=== PATIENT | male | born 1965 | race Caucasian/White ===

== ENCOUNTER 2017-07-27 07:34 | Emergency (ER) | payer OTHER ==
[~2017-07-27] VITALS: Ht 203.2 cm; Wt 118.6 kg
[2017-07-27] MEDS ORDERED: LOSA100T6 PO (08:23)
[2017-07-27] MEDS ORDERED: OMEP-110 PO (08:23)
[2017-07-27] MEDS ORDERED: MAALOX/HYOSCYAMINE/LIDOCAINE 45 ML BTL PO ONE (09:00)
[2017-07-27] MEDS ORDERED: MAALOX/HYOSCYAMINE/LIDOCAINE 45 ML BTL ONE (09:21)
[2017-07-27 10:04] LABS: BASOPHILS # (AUTO) 0.07 x10^3/uL (0-0.1); BASOPHILS % (AUTO) 1 % (0-1); EOSINOPHILS # (AUTO) 0.13 x10^3/uL (0-0.4); EOSINOPHILS % (AUTO) 1 % (1-7); LYMPHOCYTES # (AUTO) 2.61 x10^3/uL (1-3.4); LYMPHOCYTES % (AUTO) 26 % (22-44); MD NO; MEAN CORPUSCULAR HEMOGLOBIN 32.8 pg (27.5-34.5); MEAN CORPUSCULAR HGB CONC 34.9 g/dL (33.2-36.2); MEAN CORPUSCULAR VOLUME 93.9 fL (81-97); MEAN PLATELET VOLUME 9.3 fL (7.4-10.4); MONOCYTES # (AUTO) 0.75 x10^3/uL (0.2-0.8); MONOCYTES % (AUTO) 7 % (2-9); NEUTROPHILS # (AUTO) 6.59 x10^3/uL (1.8-6.8); NEUTROPHILS % (AUTO) 65 % (42-75); PLATELET COUNT 175 x10^3/uL (130-400); RED BLOOD COUNT 4.72 x10^6/uL (4.38-5.82); RED CELL DISTRIBUTION WIDTH 12.4 % (9.4-14.8)
[2017-07-27 10:06] LABS: ALANINE AMINOTRANSFERASE 39 U/L (12-78); ANION GAP 9 mmol/L (5-15); CALCIUM 9.1 mg/dL (8.5-10.1); CHLORIDE 108 mmol/L (98-107); CREATININE 1.02 mg/dL (0.7-1.3)
[2017-07-27 10:09] LABS: ALKALINE PHOSPHATASE 69 U/L (45-117); BILIRUBIN,TOTAL 0.7 mg/dL (0.2-1.0); TOTAL PROTEIN 7.4 g/dL (6.4-8.2)
[2017-07-27] MEDS ORDERED: SODIUM CHLORIDE FLUSH 10ML SYR IVF ONE (10:30)
[2017-07-27] MEDS ORDERED: SODIUM CHLORIDE 0.9% 1,000ML IVBOLUS ONE (10:30)
[2017-07-27 11:02] VITALS: BP 124/74
== END 2017-07-27 12:12 | disposition home or self-care (01) ==
LOC: ED 10:25
DX: K21.9 Gastro-esophageal reflux disease without esophagitis (principal); K29.70 Gastritis, unspecified, without bleeding; I10 Essential (primary) hypertension; E78.5 Hyperlipidemia, unspecified; F17.200 Nicotine dependence, unspecified, uncomplicated
CPT/HCPCS: 36415; 74022; 80053; 83605; 83690; 85025; 93005; 96360; 99285; J7030

== ENCOUNTER 2017-08-25 13:45 | Inpatient (IN) | payer OTHER ==
[~2017-08-25] VITALS: Ht 203.2 cm; Wt 120.0 kg
[~2017-08-25 13:45] MED LIST: LOSA100T6 PO; OMEP-110 PO
[2017-08-25] MEDS ORDERED: ADENOSINE 6 MG/2 ML ONE (14:03)
[2017-08-25 14:25] LABS: BASOPHILS # (AUTO) 0.05 x10^3/uL (0-0.1); BASOPHILS % (AUTO) 1 % (0-1); EOSINOPHILS # (AUTO) 0.12 x10^3/uL (0-0.4); EOSINOPHILS % (AUTO) 1 % (1-7); LYMPHOCYTES % (AUTO) 38 % (22-44); MD NO; MEAN CORPUSCULAR HEMOGLOBIN 33.6 pg (27.5-34.5); MEAN CORPUSCULAR HGB CONC 34.6 g/dL (33.2-36.2); MEAN CORPUSCULAR VOLUME 96.9 fL (81-97); MEAN PLATELET VOLUME 8.7 fL (7.4-10.4); MONOCYTES # (AUTO) 0.89 x10^3/uL (0.2-0.8); MONOCYTES % (AUTO) 10 % (2-9); NEUTROPHILS # (AUTO) 4.44 x10^3/uL (1.8-6.8); NEUTROPHILS % (AUTO) 50 % (42-75); PLATELET COUNT 219 x10^3/uL (130-400); RED BLOOD COUNT 4.79 x10^6/uL (4.38-5.82); RED CELL DISTRIBUTION WIDTH 13.6 % (9.4-14.8)
[2017-08-25] MEDS ORDERED: SERT50TA PO (14:30)
[2017-08-25] MEDS ORDERED: METOPROLOL 1 MG/ML, 5ML IVPush PRN (14:30)
[2017-08-25] MEDS ORDERED: ADENOSINE 6 MG/2 ML IVPush ONE (14:30)
[2017-08-25] MEDS ORDERED: SODIUM CHLORIDE FLUSH 10ML SYR IVF ONE (14:30)
[2017-08-25] MEDS ORDERED: ASPIRIN 81 MG TABLET CHEW PO ONE (14:30)
[2017-08-25] MEDS ORDERED: SODIUM CHLORIDE 0.9% 1,000ML IVBOLUS ONE (14:30)
[2017-08-25 14:38] LABS: ALANINE AMINOTRANSFERASE 72 U/L (12-78); ALBUMIN 4.3 g/dL (3.4-5.0); ANION GAP 12 mmol/L (5-15); CALCIUM 9.5 mg/dL (8.5-10.1); CHLORIDE 106 mmol/L (98-107); CREATININE 1.06 mg/dL (0.7-1.3)
[2017-08-25 14:43] LABS: ALKALINE PHOSPHATASE 80 U/L (45-117); BILIRUBIN,TOTAL 0.3 mg/dL (0.2-1.0); TROPONIN I < 0.015 ng/mL (0.000-0.045)
[2017-08-25] MEDS ORDERED: D5%-0.45% NACL 1,000 ML IV SCH (15:49)
[2017-08-25] MEDS ORDERED: ENOXAPARIN 40 MG/0.4 ML SQ SCH (16:00)
[2017-08-25] MEDS ORDERED: LORazepam 0.5MG TABLET PO PRN (16:00)
[2017-08-25] MEDS ORDERED: THIAMINE 100MG TABLET PO ONE (16:00)
[2017-08-25] MEDS ORDERED: hydrALAzine 20 MG/ML, 1ML IVPush PRN (16:00)
[2017-08-25] MEDS ORDERED: LORazepam 2 MG/ML, 1ML IV PRN ×5 (16:00)
[2017-08-25] MEDS ORDERED: NICOTINE 21 MG/24 HR PATCH.TD24 TD ONE (16:00)
[2017-08-25] MEDS ORDERED: LORazepam 1MG TABLET PO PRN ×4 (16:00)
[2017-08-25 16:51] VITALS: BP 133/92
[2017-08-25] MEDS: [UNRECOGNIZED DRUG - OTHER] IV SCH ×2 (17:00→23:36)
[2017-08-25] MEDS: POTASSIUM CHLORIDE IV SCH ×2 (17:00→23:36)
[2017-08-25] MEDS: FOLIC ACID IV SCH ×2 (17:00→23:36)
[2017-08-25] MEDS: MVI ADULT IV SCH ×2 (17:00→23:36)
[2017-08-25 17:19] LABS: TROPONIN I < 0.015 ng/mL (0.000-0.045)
[2017-08-25 18:24] VITALS: BP 128/79
[2017-08-25] MEDS: SODIUM CHLORIDE 0.9% 1,000 ML IV SCH ×2 (18:30→23:49)
[2017-08-25 23:34] LABS: TROPONIN I < 0.015 ng/mL (0.000-0.045)
[2017-08-26 00:12] LABS: AMPHETAMINE SCREEN, URINE Negative (Negative); BARBITURATE SCREEN, URINE Negative (Negative); BENZODIAZEPINE SCREEN, URINE Negative (Negative); CANNABINOID SCREEN, URINE Negative (Negative); COCAINE SCREEN, URINE Negative (Negative); METHADONE SCREEN, URINE Negative (Negative); OPIATE SCREEN, URINE Negative (Negative)
[2017-08-26 00:47] VITALS: BP 145/89
[2017-08-26 02:09] VITALS: BP 141/89
[2017-08-26] MEDS: POTASSIUM CHLORIDE IV SCH (03:28)
[2017-08-26] MEDS: [UNRECOGNIZED DRUG - OTHER] IV SCH (03:28)
[2017-08-26] MEDS: MVI ADULT IV SCH (03:28)
[2017-08-26] MEDS: FOLIC ACID IV SCH (03:28)
[2017-08-26 06:13] LABS: BASOPHILS # (AUTO) 0.02 x10^3/uL (0-0.1); BASOPHILS % (AUTO) 0 % (0-1); EOSINOPHILS # (AUTO) 0.06 x10^3/uL (0-0.4); EOSINOPHILS % (AUTO) 1 % (1-7); LYMPHOCYTES # (AUTO) 1.78 x10^3/uL (1-3.4); LYMPHOCYTES % (AUTO) 28 % (22-44); MD NO; MEAN CORPUSCULAR HEMOGLOBIN 33.1 pg (27.5-34.5); MEAN CORPUSCULAR HGB CONC 34.2 g/dL (33.2-36.2); MEAN CORPUSCULAR VOLUME 96.7 fL (81-97); MEAN PLATELET VOLUME 8.9 fL (7.4-10.4); MONOCYTES # (AUTO) 0.57 x10^3/uL (0.2-0.8); MONOCYTES % (AUTO) 9 % (2-9); NEUTROPHILS # (AUTO) 3.94 x10^3/uL (1.8-6.8); NEUTROPHILS % (AUTO) 62 % (42-75); PLATELET COUNT 161 x10^3/uL (130-400); RED BLOOD COUNT 4.06 x10^6/uL (4.38-5.82); RED CELL DISTRIBUTION WIDTH 13.2 % (9.4-14.8)
[2017-08-26 06:16] LABS: CHLORIDE 109 mmol/L (98-107)
[2017-08-26 06:39] LABS: ALANINE AMINOTRANSFERASE 55 U/L (12-78); ALBUMIN 3.5 g/dL (3.4-5.0); ALKALINE PHOSPHATASE 58 U/L (45-117); ANION GAP 11 mmol/L (5-15); BILIRUBIN,TOTAL 0.6 mg/dL (0.2-1.0); CALCIUM 8.5 mg/dL (8.5-10.1); CREATININE 0.79 mg/dL (0.7-1.3); THYROID STIMULATING HORMONE 0.731 mIU/L (0.358-3.740); TOTAL PROTEIN 6.4 g/dL (6.4-8.2)
[2017-08-26] MEDS ORDERED: METOPROLOL TARTRATE 25 MG TABLET PO SCH ×2 (07:00→18:00)
[2017-08-26 07:11] VITALS: BP 145/84
[2017-08-26] MEDS ORDERED: OMEPRAZOLE 20 MG CAPSULE.DR PO SCH (09:00)
[2017-08-26] MEDS ORDERED: LOSARTAN 50MG TABLET PO SCH (09:00)
[2017-08-26] MEDS ORDERED: MULTIVITAMIN 1 TABLET PO SCH (09:00)
[2017-08-26] MEDS ORDERED: FOLIC ACID 1 MG TABLET PO SCH (09:00)
[2017-08-26] MEDS ORDERED: SERTRALINE 50MG TABLET PO SCH (09:00)
[2017-08-26 12:48] VITALS: BP 133/82
[2017-08-26] MEDS ORDERED: FOLI-17 PO (14:01)
[2017-08-26] MEDS ORDERED: MULT1TAB60 PO (14:01)
[2017-08-26] MEDS ORDERED: THIA100T10 PO (14:01)
[2017-08-26] MEDS ORDERED: METO25TA35 PO (14:01)
[2017-08-26] MEDS ORDERED: SODIUM CHLORIDE 0.9% 1,000 ML IV SCH (15:49)
[2017-08-26] MEDS ORDERED: D5%-0.45% NACL 1,000 ML IV SCH (15:49)
== END 2017-08-26 15:24 | disposition home or self-care (01) | DRG 309 ==
LOC: ED 14:57 → 4EST 14:58 → ED 16:28 → DCLOUNGE 08-26 15:15
PROVIDERS: ADMIT Internal Medicine; ATTEND Internal Medicine
DX: I47.1 Supraventricular tachycardia (principal); E87.2 Acidosis; E78.5 Hyperlipidemia, unspecified; E86.0 Dehydration; F10.229 Alcohol dependence with intoxication, unspecified; K21.9 Gastro-esophageal reflux disease without esophagitis; F32.9 Major depressive disorder, single episode, unspecified; I10 Essential (primary) hypertension; I45.81 Long QT syndrome; Z87.891 Personal history of nicotine dependence; Z88.8 Allergy status to other drugs, medicaments and biological substances
CPT/HCPCS: 36415; J7042; 71045; 80053; 80307; 83605; 83735; 84100; 84443; 84484; 85025; 93005; 93306; 96374; J0153; J1650; J3480; J3475; J7030

== ENCOUNTER 2020-02-10 16:30 | Inpatient (IN) | payer OTHER ==
[~2020-02-10] VITALS: Ht 203.2 cm; Wt 138.9 kg
[~2020-02-10 16:30] MED LIST changes: +FOLI-17 PO; +LOSA100T14 PO; -LOSA100T6 PO; +METO25TA35 PO; +MULT-449 PO; +SERT50TA PO; +THIA100T10 PO
[2020-02-10] MEDS ORDERED: DILTIAZEM 5 MG/ML, 5ML ONE ×3 (16:49→18:59)
--- NOTE | 2020-02-10 16:57 | NUR ---
BIB EMS FOR BILATERAL LOWER QUADRANT ABD. PAIN, VOMITING. PT STATES HE WAS LAYING IN BED, SAT UP AND "SOMETHING JUST BLEW". STATES INTENSE PAIN BILATERAL LOWER PELVIS. STATES UNABLE TO EAT/DRINK/ HAVE BM SINCE TUESDAY. ON ARRIVAL PT .IN AFIB W/RVR, HYPOTENSION. AWARE. ORDERED MEDICATIONS ADMINISTERED. MONITORS CONNECTED. WARM BLANKET PROVIDED.
[2020-02-10] MEDS ORDERED: DILTIAZEM 5 MG/ML, 5ML IV ONE ×3 (17:00→19:00)
[2020-02-10] MEDS ORDERED: SODIUM CHLORIDE FLUSH 10ML SYR IVF ONE (17:00)
[2020-02-10] MEDS ORDERED: SODIUM CHLORIDE 0.9% 1,000ML IVBOLUS ONE ×3 (17:00→19:00)
[2020-02-10 17:11] LABS: MEAN CORPUSCULAR HEMOGLOBIN 33.7 pg (27.5-34.5); MEAN CORPUSCULAR HGB CONC 34.6 g/dL (33.2-36.2); MEAN PLATELET VOLUME 9.3 fL (7.4-10.4); PLATELET COUNT 233 x10^3/uL (130-400); RED BLOOD COUNT 4.41 x10^6/uL (4.38-5.82); RED CELL DISTRIBUTION WIDTH 12.8 % (9.4-14.8)
[2020-02-10 17:14] LABS: MD YES
[2020-02-10 17:21] LABS: ALANINE AMINOTRANSFERASE 20 U/L (12-78); ALBUMIN 3.1 g/dL (3.4-5.0); ANION GAP 7 mmol/L (5-15); CALCIUM 9.7 mg/dL (8.5-10.1); CHLORIDE 100 mmol/L (98-107); CREATININE 1.82 mg/dL (0.7-1.3)
[2020-02-10 17:24] LABS: ALKALINE PHOSPHATASE 80 U/L (45-117); BILIRUBIN,TOTAL 1.2 mg/dL (0.2-1.0); TOTAL PROTEIN 7.3 g/dL (6.4-8.2)
[2020-02-10 17:43] LABS: <PLATELET ESTIMATE> ADEQUATE; <PLT MORPHOLOGY> NORMAL PLT MORPH; <RBC MORPHOLOGY> NORMAL; BAND#(MANUAL) 1.12 x10^3/uL; BANDS%(MANUAL) 9 % (0-7); LYMPH#(MANUAL) 1.12 x10^3/uL (1-3.4); LYMPHS% (MANUAL) 9 % (22-44); MONOS#(MANUAL) 0.12 x10^3/uL (0.3-2.7); MONOS% (MANUAL) 1 % (2-9); SEG#(MANUAL) 10.04 x10^3/uL (1.8-6.8); SEGS% (MANUAL) 81 % (42-75)
[2020-02-10] MEDS ORDERED: ONDANSETRON 2MG/ML, 2ML ONE (17:44)
[2020-02-10] MEDS ORDERED: MORPHINE SULFATE 4 MG/ML, 1ML ONE (17:45)
[2020-02-10] MEDS: MORPHINE SULFATE 4 MG/ML, 1ML IVPush PRN (17:54)
[2020-02-10] MEDS ORDERED: ONDANSETRON 2MG/ML, 2ML IVPush ONE (18:00)
--- NOTE | 2020-02-10 18:02 | NUR ---
pt co of pain. see mar for interventions. called ct for them to come take pt
--- NOTE | 2020-02-10 18:31 | NUR ---
PT SITTING UP ON [facility]. NEW IV ACCESS OBTAINED. ORDERED MEDICATION INFUSING.
[2020-02-10] MEDS ORDERED: EPINEPHRINE 1 MG/ML, 1ML ONE (18:56)
[2020-02-10] MEDS ORDERED: BUPIVACAINE/PF 0.5% ONE (18:56)
[2020-02-10] MEDS ORDERED: CEFOTETAN PMX 1GM/50ML 50 ML IVPB ONE (19:00)
[2020-02-10 19:01] LABS: INTERNATIONAL NORMALIZED RATIO 1.13 (0.93-1.1)
--- NOTE | 2020-02-10 19:25 | NUR ---
REPORT GIVEN TO ELECTRICAL/INSTRUMENT TECHNICIAN
--- NOTE | 2020-02-10 19:25 | NUR ---
PT DIAPHORETIC, HR [id number]. MD MADE AWARE. ORDERED MEDICATIONS ADMINISTERED AND INFUSING. SECURITY CONTACTED PER PT. REQUEST TO PLACE [facility] IN [place].
--- NOTE | 2020-02-10 19:32 | NUR ---
SECURITY AT BEDSIDE FOR BELONGINGS
[2020-02-10] MEDS ORDERED: CEFTRIAXONE PMX 1GM/50ML 50 ML ONE (20:16)
[2020-02-10] MEDS ORDERED: AMIODARONE 50 MG/ML, 3ML ONE (20:16)
--- NOTE | 2020-02-10 20:20 | NUR ---
SEPSIS PROTOCOL STARTED. MADE AWARE. BLOOD CULTURES ORDERED. CEFETAN CONTINUES TO INFUSED PER PREVIOUS ORDER. DR. FLORENCE AWARE OF CEFETAN INFUSION PRIOR TO BLOOD CULTURES DRAWN. AWAITING BLOOD CULTURES FOR INFUSION OF ROCEPHIN
[2020-02-10] MEDS: FILTER 0.22 MICRON IV PRN (20:29)
[2020-02-10] MEDS: SODIUM CHLORIDE 0.9% 1,000 ML IV SCH (20:30)
[2020-02-10] MEDS ORDERED: AMIODARONE 450 MG in DEXTROSE 5% 241 ML IV PRN (20:30)
[2020-02-10] MEDS ORDERED: BISACODYL 10 MG SUPP PR PRN (20:30)
[2020-02-10] MEDS: CEFOTETAN PMX 1GM/50ML 50 ML IV SCH (20:30)
[2020-02-10] MEDS ORDERED: CEFTRIAXONE PMX 1GM/50ML 50 ML IVPB ONE (20:30)
[2020-02-10] MEDS ORDERED: AMIODARONE 150 MG in DEXTROSE 5% 100 ML IV ONE (20:30)
[2020-02-10] MEDS ORDERED: HYDROmorphone 2 MG/ML, 1ML ONE ×2 (20:37→20:43)
[2020-02-10 20:40] LABS: TROPONIN I < 0.015 ng/mL (0.000-0.045)
[2020-02-10] MEDS: HYDROmorphone 2 MG/ML, 1ML IVPush PRN (20:42)
[2020-02-10] MEDS ORDERED: MAGNESIUM SULFATE PMX 2GM/50ML 50 ML ONE (20:49)
[2020-02-10] MEDS ORDERED: MAGNESIUM SULFATE PMX 2GM/50ML 50 ML IV ONE (21:00)
--- NOTE | 2020-02-10 21:13 | NUR ---
REPORT GIVEN TO LILA SALDAÑA
[2020-02-10 22:04] VITALS: BP 92/62
[2020-02-10 22:33] VITALS: BP 92/62
[2020-02-11] VITALS (7 sets, daily range): BP systolic 93–117; BP diastolic 66–84
[2020-02-11] MEDS: HYDROmorphone 2 MG/ML, 1ML IVPush PRN ×3 (00:50→08:15)
[2020-02-11 03:03] LABS: MEAN CORPUSCULAR HEMOGLOBIN 33.1 pg (27.5-34.5); MEAN CORPUSCULAR HGB CONC 34.2 g/dL (33.2-36.2); MEAN PLATELET VOLUME 9.4 fL (7.4-10.4); PLATELET COUNT 200 x10^3/uL (130-400); RED BLOOD COUNT 4.06 x10^6/uL (4.38-5.82); RED CELL DISTRIBUTION WIDTH 12.8 % (9.4-14.8)
[2020-02-11 03:13] LABS: ALANINE AMINOTRANSFERASE 18 U/L (12-78); ALBUMIN 2.7 g/dL (3.4-5.0); ANION GAP 6 mmol/L (5-15); CALCIUM 9.2 mg/dL (8.5-10.1); CHLORIDE 105 mmol/L (98-107); CHOLESTEROL, TOTAL 96 mg/dL (140-239); CREATININE 2.01 mg/dL (0.7-1.3); TRIGLYCERIDES 122 mg/dL (50-200); VLDL CHOLESTEROL 24 mg/dL (0-25)
[2020-02-11 03:15] LABS: ALKALINE PHOSPHATASE 67 U/L (45-117); BILIRUBIN,TOTAL 1.4 mg/dL (0.2-1.0); CHOL/HDL RATIO 5.3; HDL CHOL % 19 % (26-37); HDL CHOLESTEROL (DIRECT) 18 mg/dL (40-60); LDL CHOLESTEROL,CALCULATED 54 mg/dL (54-169); TOTAL PROTEIN 6.7 g/dL (6.4-8.2)
[2020-02-11 03:17] LABS: TROPONIN I < 0.015 ng/mL (0.000-0.045)
[2020-02-11 03:38] LABS: MD YES
[2020-02-11 03:40] LABS: <RBC MORPHOLOGY> NORMAL; BAND#(MANUAL) 2.99 x10^3/uL; BANDS%(MANUAL) 18 % (0-7); LYMPH#(MANUAL) 0.33 x10^3/uL (1-3.4); LYMPHS% (MANUAL) 2 % (22-44); MONOS#(MANUAL) 0.66 x10^3/uL (0.3-2.7); MONOS% (MANUAL) 4 % (2-9); SEG#(MANUAL) 12.62 x10^3/uL (1.8-6.8); SEGS% (MANUAL) 76 % (42-75)
[2020-02-11 03:41] LABS: <PLATELET ESTIMATE> ADEQUATE; <PLT MORPHOLOGY> NORMAL PLT MORPH; PMNS WITH VACUOLES 1+; TOXIC GRAN 1+
[2020-02-11] MEDS ORDERED: EPINEPHRINE 1 MG/ML, 1ML ONE (06:50)
[2020-02-11] MEDS ORDERED: BUPIVACAINE/PF 0.5% ONE (06:50)
[2020-02-11 07:01] LABS: MICROSCOPIC AUTO
[2020-02-11] MEDS: AMIODARONE 450 MG in DEXTROSE 5% 241 ML IV PRN ×2 (07:54→22:02)
[2020-02-11 08:19] LABS: TROPONIN I < 0.015 ng/mL (0.000-0.045)
[2020-02-11] MEDS: CEFOTETAN PMX 1GM/50ML 50 ML IV SCH ×2 (08:21→20:20)
[2020-02-11] MEDS: SODIUM CHLORIDE 0.9% 1,000 ML IV SCH ×2 (09:00→22:06)
[2020-02-11] MEDS ORDERED: CHLORHEXIDINE 15 ML UDC ONE (09:55)
[2020-02-11] MEDS ORDERED: CHLORHEXIDINE 15 ML UDC MM ONE ×2 (10:00→10:30)
[2020-02-11] MEDS ORDERED: FENTANYL PF 250 MCG/5ML ONE (10:50)
[2020-02-11] MEDS ORDERED: DEXAMETHASONE 4 MG/ML, 5ML ONE (10:50)
[2020-02-11] MEDS ORDERED: MIDAZOLAM 1 MG/ML, 2ML ONE (10:50)
[2020-02-11] MEDS ORDERED: PROPOFOL 10 MG/ML, 20ML ONE (10:50)
[2020-02-11] MEDS ORDERED: ROCURONIUM 10MG/ML,5ML ONE (10:50)
[2020-02-11] MEDS ORDERED: SUCCINYLCHOLINE 20 MG/ML, 10ML ONE (10:50)
[2020-02-11] MEDS ORDERED: SUGAMMADEX 200 MG/2 ML IVPush ONE (11:40)
[2020-02-11] MEDS ORDERED: ONDANSETRON 2MG/ML, 2ML ONE (11:40)
[2020-02-11] MEDS ORDERED: ALBUTEROL SULFATE 2.5 MG/3 ML NPPB PRN (12:00)
[2020-02-11] MEDS ORDERED: ONDANSETRON 2MG/ML, 2ML IVPush PRN (12:00)
[2020-02-11] MEDS ORDERED: OXYcodone 5 MG/5 ML ORAL.SOL UDC PO PRN (12:00)
[2020-02-11] MEDS ORDERED: hydrALAzine 20 MG/ML, 1ML IV PRN (12:00)
[2020-02-11] MEDS ORDERED: ACETAMINOPHEN 325 MG TABLET PO PRN (12:00)
[2020-02-11] MEDS ORDERED: DIPHENHYDRAMINE 50 MG/ML, 1ML IVPush PRN (12:00)
[2020-02-11] MEDS ORDERED: MIDAZOLAM 1 MG/ML, 2ML IV PRN (12:00)
[2020-02-11] MEDS ORDERED: LABETALOL 5MG/ML, 20ML IV PRN (12:00)
[2020-02-11] MEDS ORDERED: PROMETHAZINE 12.5 MG SUPP PR PRN (12:00)
[2020-02-11] MEDS ORDERED: PROMETHAZINE 25 MG/ML, 1ML IVPush PRN (12:00)
[2020-02-11] MEDS ORDERED: DIAZEPAM 5 MG/ML, 2ML IVPush PRN (12:00)
[2020-02-11] MEDS ORDERED: EPHEDRINE 50 MG/ML, 1ML IVPush PRN (12:00)
[2020-02-11] MEDS ORDERED: HYDROmorphone 1 MG/ML, 1ML INJ IVPush PRN (12:00)
[2020-02-11] MEDS ORDERED: MEPERIDINE/PF 25MG/0.5ML IVPush PRN (12:00)
[2020-02-11] MEDS ORDERED: FENTANYL PF 100 MCG/2ML ONE (12:24)
[2020-02-11] MEDS: FENTANYL PF 100 MCG/2ML IV PRN ×3 (12:26→12:50)
[2020-02-11] MEDS ORDERED: OXYcodone 5 MG/5 ML ORAL.SOL UDC ONE (12:40)
[2020-02-11] MEDS: MORPHINE SULFATE 4 MG/ML, 1ML IVPush PRN (16:34)
[2020-02-11] MEDS: OXYcodone/APAP 10/325MG TABLET PO PRN (21:48)
[2020-02-11] MEDS: FILTER 0.22 MICRON IV PRN (22:02)
[2020-02-12 01:56] VITALS: BP 118/83
[2020-02-12] MEDS: OXYcodone/APAP 10/325MG TABLET PO PRN ×4 (04:53→21:21)
[2020-02-12 05:15] LABS: MEAN CORPUSCULAR HGB CONC 33.9 g/dL (33.2-36.2); MEAN PLATELET VOLUME 9.8 fL (7.4-10.4); PLATELET COUNT 195 x10^3/uL (130-400); RED BLOOD COUNT 3.69 x10^6/uL (4.38-5.82); RED CELL DISTRIBUTION WIDTH 12.5 % (9.4-14.8)
[2020-02-12 05:28] LABS: ALBUMIN 2.5 g/dL (3.4-5.0); ANION GAP 6 mmol/L (5-15); CALCIUM 9.4 mg/dL (8.5-10.1); CHLORIDE 104 mmol/L (98-107)
[2020-02-12 05:31] LABS: ALANINE AMINOTRANSFERASE 19 U/L (12-78); ALKALINE PHOSPHATASE 60 U/L (45-117); BILIRUBIN,TOTAL 0.6 mg/dL (0.2-1.0); CREATININE 1.33 mg/dL (0.7-1.3); TOTAL PROTEIN 6.7 g/dL (6.4-8.2)
[2020-02-12 06:29] LABS: MD YES
[2020-02-12 06:31] LABS: <RBC MORPHOLOGY> NORMAL; BAND#(MANUAL) 0.72 x10^3/uL; BANDS%(MANUAL) 6 % (0-7); LYMPH#(MANUAL) 0.36 x10^3/uL (1-3.4); LYMPHS% (MANUAL) 3 % (22-44); MONOS#(MANUAL) 0.72 x10^3/uL (0.3-2.7); MONOS% (MANUAL) 6 % (2-9); PMNS WITH VACUOLES 1+; SEGS% (MANUAL) 85 % (42-75); TOXIC GRAN 1+
[2020-02-12 06:32] LABS: <PLATELET ESTIMATE> ADEQUATE; <PLT MORPHOLOGY> NORMAL PLT MORPH
[2020-02-12 07:25] VITALS: BP 116/80
[2020-02-12] MEDS: CEFOTETAN PMX 1GM/50ML 50 ML IV SCH ×2 (09:02→21:20)
[2020-02-12] MEDS: SODIUM CHLORIDE 0.9% 1,000 ML IV SCH (11:01)
[2020-02-12] MEDS: AMIODARONE 450 MG in DEXTROSE 5% 241 ML IV PRN (11:01)
[2020-02-12 12:32] VITALS: BP 114/74
[2020-02-12 18:34] VITALS: BP 138/97
[2020-02-12] MEDS: ONDANSETRON 2MG/ML, 2ML IVPush PRN (21:21)
[2020-02-13 01:01] VITALS: BP 142/91
[2020-02-13] MEDS: AMIODARONE 450 MG in DEXTROSE 5% 241 ML IV PRN (01:19)
[2020-02-13] MEDS: FILTER 0.22 MICRON IV PRN (01:19)
[2020-02-13 05:40] LABS: MEAN CORPUSCULAR HEMOGLOBIN 32.8 pg (27.5-34.5); MEAN CORPUSCULAR HGB CONC 33.9 g/dL (33.2-36.2); MEAN PLATELET VOLUME 9.8 fL (7.4-10.4); PLATELET COUNT 256 x10^3/uL (130-400); RED BLOOD COUNT 3.95 x10^6/uL (4.38-5.82); RED CELL DISTRIBUTION WIDTH 12.9 % (9.4-14.8)
[2020-02-13] MEDS: ONDANSETRON 2MG/ML, 2ML IVPush PRN (05:41)
[2020-02-13] MEDS: OXYcodone/APAP 10/325MG TABLET PO PRN ×4 (05:41→23:40)
[2020-02-13 05:44] LABS: ALBUMIN 2.6 g/dL (3.4-5.0); ANION GAP 3 mmol/L (5-15); CALCIUM 9.4 mg/dL (8.5-10.1); CHLORIDE 102 mmol/L (98-107)
[2020-02-13 05:48] LABS: ALANINE AMINOTRANSFERASE 28 U/L (12-78); ALKALINE PHOSPHATASE 68 U/L (45-117); BILIRUBIN,TOTAL 0.4 mg/dL (0.2-1.0); CREATININE 1.15 mg/dL (0.7-1.3); TOTAL PROTEIN 6.8 g/dL (6.4-8.2)
[2020-02-13 06:27] LABS: BAND#(MANUAL) 1.62 x10^3/uL; BANDS%(MANUAL) 9 % (0-7); LYMPHS% (MANUAL) 5 % (22-44); MD YES; MONOS#(MANUAL) 1.08 x10^3/uL (0.3-2.7); MONOS% (MANUAL) 6 % (2-9); SEGS% (MANUAL) 80 % (42-75)
[2020-02-13 06:28] LABS: <PLATELET ESTIMATE> ADEQUATE; <PLT MORPHOLOGY> NORMAL PLT MORPH; PMNS WITH VACUOLES 1+
[2020-02-13 06:29] LABS: <RBC MORPHOLOGY> NORMAL
[2020-02-13 07:22] VITALS: BP 137/94
[2020-02-13] MEDS: CEFOTETAN PMX 1GM/50ML 50 ML IV SCH ×2 (09:02→20:20)
[2020-02-13 13:05] VITALS: BP 151/112
[2020-02-13] MEDS: METOPROLOL TARTRATE 50 MG TAB PO SCH ×2 (13:14→17:43)
[2020-02-13] MEDS ORDERED: DOCUSATE 100 MG CAPSULE ONE (18:30)
[2020-02-13] MEDS ORDERED: LACTULOSE 20 GM/30 ML UDC PO PRN (18:30)
[2020-02-13] MEDS ORDERED: BISACODYL 10 MG SUPP PR PRN (18:30)
[2020-02-13] MEDS ORDERED: POLYETHYLENE GLYCOL 17 GM PACKET ONE (18:30)
[2020-02-13 18:33] VITALS: BP 154/110
[2020-02-13] MEDS: POLYETHYLENE GLYCOL 17 GM PACKET PO PRN (18:35)
[2020-02-14 00:05] VITALS: BP 142/96
[2020-02-14 04:30] LABS: MEAN CORPUSCULAR HEMOGLOBIN 32.6 pg (27.5-34.5); MEAN PLATELET VOLUME 8.8 fL (7.4-10.4); PLATELET COUNT 268 x10^3/uL (130-400); RED BLOOD COUNT 4.19 x10^6/uL (4.38-5.82); RED CELL DISTRIBUTION WIDTH 12.9 % (9.4-14.8)
[2020-02-14 04:44] LABS: ALBUMIN 2.5 g/dL (3.4-5.0); ANION GAP 8 mmol/L (5-15); CALCIUM 9.3 mg/dL (8.5-10.1); CHLORIDE 104 mmol/L (98-107)
[2020-02-14 04:47] LABS: ALANINE AMINOTRANSFERASE 35 U/L (12-78); ALKALINE PHOSPHATASE 57 U/L (45-117); BILIRUBIN,TOTAL 0.5 mg/dL (0.2-1.0); CREATININE 1.06 mg/dL (0.7-1.3); TOTAL PROTEIN 6.4 g/dL (6.4-8.2)
[2020-02-14 05:12] LABS: MD YES
[2020-02-14 05:14] LABS: <PLATELET ESTIMATE> ADEQUATE; <PLT MORPHOLOGY> NORMAL PLT MORPH; <RBC MORPHOLOGY> NORMAL; LYMPH#(MANUAL) 1.66 x10^3/uL (1-3.4); LYMPHS% (MANUAL) 12 % (22-44); MONOS#(MANUAL) 0.97 x10^3/uL (0.3-2.7); MONOS% (MANUAL) 7 % (2-9); SEG#(MANUAL) 11.18 x10^3/uL (1.8-6.8); SEGS% (MANUAL) 81 % (42-75)
[2020-02-14] MEDS: METOPROLOL TARTRATE 50 MG TAB PO SCH ×2 (05:56→17:17)
[2020-02-14] MEDS ORDERED: POTASSIUM CHLORIDE 20 MEQ TAB.ER.PRT PO ONE (07:00)
[2020-02-14 08:42] VITALS: BP 134/87
[2020-02-14] MEDS ORDERED: MAGNESIUM HYDROXIDE 8%, 30ML UDC PO PRN (09:00)
[2020-02-14] MEDS: KETOROLAC 30 MG/1 ML IV SCH ×2 (09:08→17:17)
[2020-02-14] MEDS: CEFOTETAN PMX 1GM/50ML 50 ML IV SCH ×2 (09:08→20:15)
[2020-02-14] MEDS: DOCUSATE 100 MG CAPSULE PO SCH (09:08)
[2020-02-14] MEDS: POLYETHYLENE GLYCOL 17 GM PACKET PO PRN (09:17)
[2020-02-14] MEDS: LOSARTAN 50MG TABLET PO SCH (11:37)
[2020-02-14 12:13] VITALS: BP 129/89
[2020-02-14] MEDS: CALCIUM CARBONATE 500 MG TAB.CHEW PO PRN (13:48)
[2020-02-14] MEDS ORDERED: NICOTINE 14MG/24 HR PATCH.TD24 TD SCH (14:00)
[2020-02-14] MEDS: OXYcodone/APAP 10/325MG TABLET PO PRN ×2 (15:29→20:19)
[2020-02-14 18:48] VITALS: BP 117/79
[2020-02-15 00:43] VITALS: BP 142/98
[2020-02-15] MEDS: KETOROLAC 30 MG/1 ML IV SCH ×2 (01:27→08:08)
[2020-02-15] MEDS ORDERED: DILTIAZEM 5 MG/ML, 5ML IVPush STA (03:49)
[2020-02-15] MEDS ORDERED: METOPROLOL 1 MG/ML, 5ML IVPush ONE (04:30)
[2020-02-15] MEDS: CALCIUM CARBONATE 500 MG TAB.CHEW PO PRN (04:51)
[2020-02-15 05:48] LABS: CHLORIDE 102 mmol/L (98-107)
[2020-02-15 05:51] LABS: ANION GAP 8 mmol/L (5-15); CREATININE 1.09 mg/dL (0.7-1.3)
[2020-02-15] MEDS: METOPROLOL TARTRATE 50 MG TAB PO SCH (05:51)
[2020-02-15 07:25] VITALS: BP 127/80
[2020-02-15] MEDS ORDERED: POTASSIUM CHLORIDE 20 MEQ TAB.ER.PRT PO ONE (07:30)
[2020-02-15] MEDS: DOCUSATE 100 MG CAPSULE PO SCH (08:08)
[2020-02-15] MEDS: CEFOTETAN PMX 1GM/50ML 50 ML IV SCH (08:08)
[2020-02-15] MEDS: LOSARTAN 50MG TABLET PO SCH (08:08)
[2020-02-15] MEDS: POLYETHYLENE GLYCOL 17 GM PACKET PO PRN (08:16)
[2020-02-15] MEDS ORDERED: METOPROLOL TARTRATE 25 MG TAB PO ONE (10:00)
[2020-02-15] MEDS ORDERED: DOCU100C33 PO (10:37)
[2020-02-15] MEDS ORDERED: LOSA25TA25 PO (10:37)
[2020-02-15] MEDS ORDERED: OXYC1TAB18 PO (10:37)
[2020-02-15] MEDS ORDERED: METO25TA35 PO (10:37)
[2020-02-15] MEDS ORDERED: PANT40TA6 PO (10:38)
[2020-02-15] MEDS ORDERED: AMOX1TAB64 PO (10:40)
[2020-02-15] MEDS ORDERED: METOPROLOL TARTRATE 25 MG TAB PO SCH (18:00)
[2020-02-16] MEDS ORDERED: LOSARTAN 25MG TABLET PO SCH (09:00)
== END 2020-02-15 11:50 | disposition home or self-care (01) | DRG 339 ==
LOC: ED 17:42 → EDIP 20:26 → 5SO 21:56 → 4WST 02-12 15:08 → DCLOUNGE 02-15 11:41
PROVIDERS: ADMIT Family Medicine; ATTEND Family Medicine
PROC: 3E1M38Z Irrigation of Peritoneal Cavity using Irrigating Substance, Percutaneous Approach (ICD-10-PCS; 2020-02-11)
PROC: 0DTJ4ZZ Resection of Appendix, Percutaneous Endoscopic Approach (ICD-10-PCS; principal; 2020-02-11 10:15)
DX: K35.32 Acute appendicitis with perforation, localized peritonitis, and gangrene, without abscess (principal); I48.20 Chronic atrial fibrillation, unspecified; D68.69 Other thrombophilia; E87.1 Hypo-osmolality and hyponatremia; I50.20 Unspecified systolic (congestive) heart failure; E78.5 Hyperlipidemia, unspecified; K21.9 Gastro-esophageal reflux disease without esophagitis; I11.0 Hypertensive heart disease with heart failure; F41.9 Anxiety disorder, unspecified; F32.9 Major depressive disorder, single episode, unspecified; M10.9 Gout, unspecified; E83.42 Hypomagnesemia; F17.210 Nicotine dependence, cigarettes, uncomplicated; Z82.49 Family history of ischemic heart disease and other diseases of the circulatory system; Z88.8 Allergy status to other drugs, medicaments and biological substances; Z79.899 Other long term (current) drug therapy
CPT/HCPCS: 36415; 84145; 96361; 96374; 96376; 99291; S0020; 71045; 74177; 80048; 80053; 80061; 81001; 82607; 83605; 83690; 83735; 84443; 84484; 85025; 85610; 85730; 87040; 87086; 87635; 88304; 93005; 93306; C1729; G0378; J0171; J1100; J1170; J1885; J2250; J2405; J2704; J3010; J7060; J0282; J0330; J2270; J3475; J7030

== ENCOUNTER 2020-03-26 05:57 | Day surgery (SDC) | payer OTHER ==
[~2020-03-26] VITALS: Ht 203.2 cm; Wt 110.0 kg
[~2020-03-26 05:57] MED LIST changes: +AMOX1TAB64 PO; +DOCU100C33 PO; -FOLI-17 PO; +FOLI1TAB32 PO; +LOSA25TA25 PO; +OXYC1TAB18 PO; +PANT40TA6 PO
[2020-03-26] MEDS ORDERED: METO50TA82 PO (06:24)
[2020-03-26] MEDS ORDERED: RIVA20TA PO (06:27)
[2020-03-26] MEDS ORDERED: ASPI-1026 PO (06:27)
[2020-03-26] MEDS ORDERED: METH4TAB PO (06:27)
[2020-03-26] MEDS ORDERED: LOVA10TA PO (06:27)
[2020-03-26 07:07] LABS: BASOPHILS % (AUTO) 1 % (0-1); EOSINOPHILS % (AUTO) 4 % (1-7); LYMPHOCYTES % (AUTO) 20 % (22-44); MEAN CORPUSCULAR HEMOGLOBIN 32.2 pg (27.5-34.5); MEAN CORPUSCULAR HGB CONC 34.9 g/dL (33.2-36.2); MEAN PLATELET VOLUME 8.6 fL (7.4-10.4); MONOCYTES % (AUTO) 11 % (2-9); NEUTROPHILS % (AUTO) 65 % (42-75); PLATELET COUNT 232 x10^3/uL (130-400); RED BLOOD COUNT 3.97 x10^6/uL (4.38-5.82)
[2020-03-26 07:08] LABS: ANION GAP 10 mmol/L (5-15); CALCIUM 9.5 mg/dL (8.5-10.1); CHLORIDE 106 mmol/L (98-107)
[2020-03-26 07:14] LABS: MD NO
[2020-03-26 07:25] LABS: INTERNATIONAL NORMALIZED RATIO 1.1 (0.93-1.1); PROTHROMBIN TIME 11.8 Seconds (9.6-11.5)
[2020-03-26] MEDS ORDERED: PROPOFOL 10 MG/ML, 20ML ONE (07:29)
== END 2020-03-26 08:42 | disposition home or self-care (01) ==
LOC: CACL 05:57
PROVIDERS: ATTEND Internal Medicine Clinical Cardiac Electrophysiology
DX: I48.19 Other persistent atrial fibrillation (principal); I10 Essential (primary) hypertension; E78.5 Hyperlipidemia, unspecified; Z79.01 Long term (current) use of anticoagulants; Z79.82 Long term (current) use of aspirin; Z79.891 Long term (current) use of opiate analgesic; Z79.899 Other long term (current) drug therapy; Z88.8 Allergy status to other drugs, medicaments and biological substances
CPT/HCPCS: 36415; 80048; 85025; 85610; 92960; J2704

== ENCOUNTER → 2020-04-10 | Outpatient (CLI) | payer OTHER ==
[~2020-04-10] MED LIST changes: +APIX5TAB PO; +ASPI-1026 PO; +LOSA50TA14 PO; +LOVA10TA PO; +METH4TAB PO; +METO50TA82 PO; +OMNIPAQUE 350 MG/ML, 150 ML BOTTLE ONE; +RIVA20TA PO
== END | disposition home or self-care (01) ==
LOC: CFH 08:17
PROVIDERS: ATTEND Internal Medicine Clinical Cardiac Electrophysiology
DX: I48.91 Unspecified atrial fibrillation (principal)
CPT/HCPCS: 71046; 75572; Q9967

== ENCOUNTER 2020-04-11 05:55 | Observation (INO) | payer OTHER ==
[~2020-04-11] VITALS: Ht 203.2 cm; Wt 126.5 kg
[~2020-04-11 05:55] MED LIST changes: -APIX5TAB PO; -LOSA50TA14 PO; -OMNIPAQUE 350 MG/ML, 150 ML BOTTLE ONE
[2020-04-11] MEDS ORDERED: SODIUM CHLORIDE 0.9% 1,000 ML IV SCH ×2 (06:30)
[2020-04-11 06:38] VITALS: BP 136/81
[2020-04-11] MEDS ORDERED: APIX5TAB PO (06:41)
[2020-04-11] MEDS ORDERED: LOSA50TA14 PO (06:46)
[2020-04-11] MEDS ORDERED: MIDAZOLAM 1 MG/ML, 2ML ONE (07:40)
[2020-04-11] MEDS ORDERED: FENTANYL PF 100 MCG/2ML ONE ×3 (07:40→14:53)
[2020-04-11] MEDS ORDERED: EPHEDRINE 50 MG/ML, 1ML IVPush PRN (08:00)
[2020-04-11] MEDS ORDERED: ACETAMINOPHEN 325 MG TABLET PO PRN (08:00)
[2020-04-11] MEDS ORDERED: hydrALAzine 20 MG/ML, 1ML IV PRN (08:00)
[2020-04-11] MEDS ORDERED: ONDANSETRON 2MG/ML, 2ML IVPush PRN (08:00)
[2020-04-11] MEDS ORDERED: FENTANYL PF 100 MCG/2ML IV PRN (08:00)
[2020-04-11] MEDS ORDERED: LABETALOL 5MG/ML, 20ML IV PRN (08:00)
[2020-04-11] MEDS ORDERED: OXYcodone 5 MG/5 ML ORAL.SOL UDC PO PRN (08:00)
[2020-04-11] MEDS ORDERED: HYDROmorphone 1 MG/ML, 1ML INJ IVPush PRN (08:00)
[2020-04-11] MEDS ORDERED: PROMETHAZINE 25 MG/ML, 1ML IVPush PRN (08:00)
[2020-04-11] MEDS ORDERED: LIDOCAINE 2%, 20ML ONE (09:07)
[2020-04-11] MEDS ORDERED: HEPARIN 1,000 UNITS/ML, 10ML ONE ×5 (09:13→12:36)
[2020-04-11] MEDS ORDERED: DEXAMETHASONE 4 MG/ML, 1ML ONE (09:15)
[2020-04-11] MEDS ORDERED: ONDANSETRON 2MG/ML, 2ML ONE (09:15)
[2020-04-11] MEDS ORDERED: SUGAMMADEX 200 MG/2 ML IVPush ONE (09:15)
[2020-04-11] MEDS ORDERED: ROCURONIUM 10MG/ML,5ML ONE ×3 (09:15→11:41)
[2020-04-11] MEDS ORDERED: SUCCINYLCHOLINE 20 MG/ML, 10ML ONE (09:15)
[2020-04-11] MEDS ORDERED: CEFAZOLIN 1,000 MG ONE (09:15)
[2020-04-11] MEDS ORDERED: PROPOFOL 10 MG/ML, 20ML ONE (09:15)
[2020-04-11] MEDS ORDERED: APIXABAN 5 MG TABLET ONE (13:52)
[2020-04-11] MEDS ORDERED: OXYcodone 5 MG/5 ML ORAL.SOL UDC ONE (14:10)
[2020-04-11] MEDS ORDERED: ACETAMINOPHEN 650 MG/20.3 ML UDC ONE (14:10)
[2020-04-11] MEDS ORDERED: PANTOPRAZOLE 20MG TABLET PO ONE (15:30)
[2020-04-11 18:11] VITALS: BP 154/109
[2020-04-11] MEDS ORDERED: METOPROLOL TARTRATE 100 MG TAB ONE (18:15)
[2020-04-11] MEDS: METOPROLOL TARTRATE 100 MG TAB PO SCH (18:32)
[2020-04-11 20:24] VITALS: BP 150/95
[2020-04-11] MEDS: APIXABAN 5 MG TABLET PO SCH (20:35)
[2020-04-11] MEDS: COLCHICINE 0.6 MG CAPSULE PO SCH (20:35)
[2020-04-11] MEDS ORDERED: APIXABAN 5 MG TABLET PO SCH (21:00)
[2020-04-11] MEDS ORDERED: METOPROLOL TARTRATE 100 MG TAB PO SCH (21:00)
[2020-04-11] MEDS ORDERED: LOVASTATIN 10 MG TABLET PO SCH (21:00)
[2020-04-12 02:02] VITALS: BP 147/93
[2020-04-12 07:42] VITALS: BP 148/102
[2020-04-12] MEDS ORDERED: PANT20TA2 PO (08:19)
[2020-04-12] MEDS ORDERED: COLC0.6C3 PO (08:19)
[2020-04-12] MEDS ORDERED: AMLODIPINE 5 MG TABLET PO ONE (08:30)
[2020-04-12 09:00] VITALS: BP 138/95
[2020-04-12] MEDS ORDERED: SERTRALINE 50MG TABLET PO SCH (09:00)
[2020-04-12] MEDS ORDERED: LOSARTAN 50MG TABLET PO SCH (09:00)
[2020-04-12] MEDS: APIXABAN 5 MG TABLET PO SCH (09:01)
[2020-04-12] MEDS: COLCHICINE 0.6 MG CAPSULE PO SCH (09:01)
[2020-04-12] MEDS: METOPROLOL TARTRATE 100 MG TAB PO SCH (09:02)
== END 2020-04-12 09:40 | disposition home or self-care (01) ==
LOC: CACL 05:55 → ORIP 13:46 → 5SO 15:11 → CACL 15:58 → 5SO 16:23 → DCLOUNGE 04-12 09:34
PROVIDERS: ADMIT Internal Medicine Clinical Cardiac Electrophysiology; ATTEND Internal Medicine Clinical Cardiac Electrophysiology
DX: I48.19 Other persistent atrial fibrillation (principal); Z20.822 Contact with and (suspected) exposure to COVID-19; I42.9 Cardiomyopathy, unspecified; I10 Essential (primary) hypertension; E78.5 Hyperlipidemia, unspecified; M10.9 Gout, unspecified; E66.9 Obesity, unspecified; F32.9 Major depressive disorder, single episode, unspecified; F17.200 Nicotine dependence, unspecified, uncomplicated; F10.10 Alcohol abuse, uncomplicated; Z79.899 Other long term (current) drug therapy; Z79.01 Long term (current) use of anticoagulants
CPT/HCPCS: 76937; 85347; 87635; 93005; 93306; 93312; 93321; 93325; 93613; 93655; 93656; 93662; C1730; C1732; C1759; C1766; C1893; C1894; G0378; J0330; J0690; J1100; J1644; J2250; J2405; J2704; J3010; J3490

== ENCOUNTER 2020-06-12 23:34 | Emergency (ER) | payer OTHER ==
[~2020-06-12] VITALS: Ht 203.2 cm; Wt 120.0 kg
[~2020-06-12 23:34] MED LIST changes: +APIX5TAB PO; +COLC0.6C3 PO; +LOSA50TA14 PO; +PANT20TA2 PO
[2020-06-13] MEDS ORDERED: ACETAMINOPHEN 500 MG TABLET PO ONE (00:30)
[2020-06-13] MEDS ORDERED: ACETAMINOPHEN 500 MG TABLET ONE ×2 (00:33→00:34)
[2020-06-13] MEDS ORDERED: LIDOCAINE-MPF 1%, 2ML ONE (00:45)
[2020-06-13] MEDS ORDERED: LIDOCAINE 1%, 10ML INFIL ONE (01:00)
--- NOTE | 2020-06-13 01:48 | NUR ---
REPORT GIVEN TO PIPER ACEVEDO
--- NOTE | 2020-06-13 02:20 | NUR ---
REPORT GIVEN TO PIPER RUSSO.
--- NOTE | 2020-06-13 02:26 | NUR ---
BEDSIDE REPORT RECEIVED FROM KRISTINA SALDAÑA
--- NOTE | 2020-06-13 02:30 | NUR ---
PT SITTING UPRIGHT ON [place], NADN, VSS. NO NEEDS AT THIS TIME. CALL LIGHT AND BELONGINGS WITHIN REACH. WILL CONTINUE TO MONITOR.
[2020-06-13] MEDS ORDERED: KETOROLAC 30 MG/1 ML ONE (03:44)
[2020-06-13 03:59] VITALS: BP 132/75
--- NOTE | 2020-06-13 03:59 | NUR ---
Patient given discharge instructions and they have confirmed that they understand the instructions. Patient ambulatory with steady gait.
[2020-06-13] MEDS ORDERED: INDOMETHACIN 50 MG CAPSULE PO ONE (04:00)
[2020-06-13] MEDS ORDERED: KETOROLAC 30 MG/1 ML IM ONE (04:00)
== END 2020-06-13 04:01 | disposition home or self-care (01) ==
LOC: ED 06-13 00:04
DX: M17.0 Bilateral primary osteoarthritis of knee (principal); M25.561 Pain in right knee; M25.562 Pain in left knee; M25.462 Effusion, left knee; M25.461 Effusion, right knee; F17.210 Nicotine dependence, cigarettes, uncomplicated
CPT/HCPCS: 20610; 36415; 73564; 82945; 83615; 84157; 84550; 84560; 85810; 87070; 87205; 89050; 89060; 96372; 99283; 99406; J1885